=== PATIENT | male | born 1980 | race Asian ===

== ENCOUNTER → 2019-10-26 | Outpatient (CLI) | payer OTHER | LOC: CAT 14:02 | DX: Z13.6 Encounter for screening for cardiovascular disorders (principal); I25.10 Atherosclerotic heart disease of native coronary artery without angina pectoris; E78.00 Pure hypercholesterolemia, unspecified ==

== ENCOUNTER → 2020-08-07 | Outpatient (CLI) | payer OTHER | LOC: CAT 08:31 | PROVIDERS: ATTEND Nurse Practitioner | DX: K40.90 Unilateral inguinal hernia, without obstruction or gangrene, not specified as recurrent (principal) ==